=== PATIENT | male | born 1995 | race Caucasian/White ===

== ENCOUNTER 2016-11-12 18:53 | Emergency (ER) | payer MEDICAID, OTHER ==
--- NOTE | 2016-11-12 19:12 | EDM.PDOC ---
ED HPI GENERAL MEDICAL PROBLEM - General Chief Complaint: Laceration Stated Complaint: Cut to left hand Time Seen by Provider: 11/12/16 18:53 Source of Information: Reports: Patient, RN, RN Notes Reviewed History Limitations: Reports: No Limitations - History of Present Illness Onset: Today Onset Date: 11/12/16 Onset Time: 02:30 Context: Reports: Trauma - Related Data Allergies Allergy/AdvReac Type Severity Reaction Status Date / Time No Known Allergies Allergy Verified 11/12/16 19:10 Home Meds: Home Meds Escitalopram Oxalate [Lexapro] 20 mg PO DAILY 11/12/16 [History] Past Medical History Psychiatric History: Reports: Depression - History Comment History Comment: No previous surgeries Social & Family History - Family History Family Medical History: Noncontributory - Tobacco Use Smoking Status *Q: Never Smoker Tobacco Use Within Last Twelve Months: No - Caffeine Use Caffeine Use: Reports: Energy Drinks - Alcohol Use Alcohol Use Frequency: Socially - Recreational Drug Use Recreational Drug Use: No Drug Use in Last 12 Months: No - Living Situation & Occupation Living situation: Reports: Single Occupation: Employed ED ROS GENERAL - Review of Systems Review Of Systems: See Below Constitutional: Denies: Fever, Chills, Weakness Respiratory: Denies: Shortness of Breath, Cough Cardiovascular: Denies: Chest Pain, Palpitations Skin: Reports: Wound (cut to left hand) Neurological: Reports: No Symptoms. Denies: Numbness, Paresthesia, Tingling ED EXAM, SKIN/RASH Exam: See Below Exam Limited By: No Limitations General Appearance: Alert, No Apparent Distress Respiratory/Chest: No Respiratory Distress, Lungs Clear, Normal Breath Sounds Cardiovascular: Normal Peripheral Pulses, Regular Rate, Rhythm Peripheral Pulses: 2+: Radial (L), Radial (R) Skin: Warm, Dry, Intact, Normal Color, No Rash, Wound/Incision (2.2cm vertical laceration to the left lateral palm; no bleeding; skin intact; no evidence of infection) Location, Skin: Upper Extremity, Left Associated features: No: Warmth, Tenderness ED SKIN PROCEDURES - Laceration/Wound Repair Left Lateral Hand Lac/Wound length In cm: 2.2 Appearance: Subcutaneous Distal NVT: Neuro & Vascular Intact, No Tendon Injury Anesthetic Type: Other (none) Skin Prep: Other (none) Exploration/Debridement/Repair: Other (unable to assess due to glue over site prior to presentation) Closed with: Dermabond (used to re-inforce pre-glued area) Sterile Dressing Applied: Nurse Tetanus Status Addressed: Yes Complications: No Course - Vital Signs Last Recorded V/S: Last Vital Signs Temp 36.9 C 11/12/16 19:10 Pulse 78 11/12/16 19:10 Resp 18 11/12/16 19:10 BP 138/86 11/12/16 19:10 Pulse Ox 98 11/12/16 19:10 Departure - Departure Time of Disposition: 19:12 Disposition: Home, Self-Care 01 Condition: Good Clinical Impression: Hand laceration Qualifiers: Encounter type: initial encounter Foreign body presence: without foreign body Laterality: left Qualified Code(s): S61.412A - Laceration without foreign body of left hand, initial encounter - Discharge Information Instructions: Laceration Care, Adult, [id number], Stitches, Emely, or Adhesive Wound Closure, [id number] Forms: ED Department Discharge Additional Instructions: 1. Stay well hydrated and rest 2. Leave glue on as long as possible 3. Keep area covered for 24 hours, then remove bandage 4. See your Primary as symptoms warrant - Problem List Review Problem List Initiated/Reviewed/Updated: Yes
== END 2016-11-12 19:22 | disposition home or self-care (01) ==
LOC: VM.ED 18:53
DX: S61.412A Laceration without foreign body of left hand, initial encounter (principal); F32.9 Major depressive disorder, single episode, unspecified; W45.8XXA Other foreign body or object entering through skin, initial encounter
CPT/HCPCS: 12001; 99283